=== PATIENT | female | born 2000 | race Caucasian/White ===

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

== ENCOUNTER 2018-01-16 12:18 | Emergency (ER) | payer BC, OTHER ==
[~2018-01-16] VITALS: Ht 162.6 cm; Wt 62.4 kg
[2018-01-16 12:26] VITALS: TEMP 37.2; Ht 162.6 cm; Wt 62.4 kg
[2018-01-16] MEDS ORDERED: LIDOCAINE 1% BUFFERED INJ 20 ML VIAL INFIL ONE (12:45)
--- NOTE | 2018-01-16 12:58 | DIAGNOSTIC IMAGING REPORT ---
R TOE(S) MIN 2 VIEWS HISTORY: 17 years-old Female RIGHT GREAT TOE, LACERATION acute pain and swelling with laceration of the right great toe COMPARISON: None available TECHNIQUE: 3 views of the right great toe FINDINGS: Mild soft tissue swelling of the distal first toe. No acute fracture, dislocation, significant degenerative changes or opaque foreign body. IMPRESSION: Soft tissue swelling without fracture or opaque foreign body. The above report was generated using voice recognition software. It may contain grammatical, syntax or spelling errors. Electronically signed by: Landen Juarez M.D. 01/16/2018 12:57 PM Dictated Date/Time: 01/16/2018 12:56 PM
--- NOTE | 2018-01-16 13:25 | EMERGENCY ROOM VISIT NOTE ---
ED Visit Note First contact with patient: 12:31 CHIEF COMPLAINT: Right great toe laceration 30 minutes ago HISTORY OF PRESENT ILLNESS: Patient is a 17-year-old female who presents emergency department for evaluation of a laceration to the dorsal aspect of the right great toe that she sustained roughly 30 minutes ago. She was doing some prep work in the kitchen when a non-serrated knife fell off the counter, landing on her right great toe, causing the laceration described below. She applied pressure, but bleeding continued. She applied paper towels and the plastic graft as a bandage and came to the emergency department. She has some minor discomfort with weightbearing. REVIEW OF SYSTEMS: Review of systems as per HPI. All other systems reviewed were negative. At least 6 systems reviewed. PMH: Electronic medical records are reviewed and summarized as above/below. See Problem List. Her tetanus is up-to-date. SOCIAL HISTORY: Patient is a college student from [employer] who lives locally in an apartment with roommates. Non-smoker. PHYSICAL EXAM: Vital Signs: Reviewed Nurse's notes. CONSTITUTIONAL: Patient is a well-appearing 17 acute distress. INTEGUMENTARY: There is a 2 cm long laceration on the dorsal aspect of the right great toe over the proximal phalanx , located more medially. The edges are gaping apart. There is no foreign material in the wound and it looks clean. There is no active bleeding. The patient can actively dorsiflex and plantarflex the great toe fully, and can hold against resistance with good strength. No deep structures such as tendons or nerves are seen in the base of the wound. EMERGENCY DEPARTMENT COURSE: X-rays of the right great toe were obtained and were negative for fracture. Using sterile technique, the toe was prepped with Betadine and wound was anesthetized with 1% plain buffered lidocaine. Area was draped sterilely. Wound was irrigated copiously using normal saline solution. A digital tourniquet was applied to achieve hemostasis and the wound was explored thoroughly, with no evidence of injury into the joint capsule. I could not appreciate any type of extensor tendon injury. Wound was reapproximated using 6, 5-0 nylon sutures. Bacitracin and a light dressing were applied. She was encouraged to wear a supportive shoes such as a sneaker. Medication reconciliation: I attest that I have personally reviewed the patient' s current medication list. Blood pressure screening : Patient was found to have normal blood pressure on screening and does not require follow-up. R TOE(S) MIN 2 VIEWS HISTORY: 17 years-old Female RIGHT GREAT TOE, LACERATION acute pain and swelling with laceration of the right great toe COMPARISON: None available TECHNIQUE: 3 views of the right great toe FINDINGS: Mild soft tissue swelling of the distal first toe. No acute fracture, dislocation, significant degenerative changes or opaque foreign body. IMPRESSION: Soft tissue swelling without fracture or opaque foreign body. Problem List Medical Problems: (1) Alcohol intoxication Status: Resolved (2) Alcohol intoxication Status: Resolved (3) Hypokalemia Status: Resolved (4) Hypokalemia Status: Resolved Current/Historical Medications Unable to Obtain Active Prescriptions or Reported Meds Allergies Coded Allergies: Amoxicillin (Verified Allergy, Mild, HIVES, 01/16/18) Clavulanic Acid (Verified Allergy, Mild, HIVES, 01/16/18) Vital Signs Date Time Temp Pulse Resp B/P (MAP) Pulse Ox O2 Delivery O2 Flow Rate FiO2 01/16/18 13:31 69 18 105/69 100 01/16/18 12:26 37.2 75 16 113/74 99 Room Air Departure Information Impression Primary Impression: Toe laceration Prescriptions Unable to Obtain Active Prescriptions or Reported Meds Referrals No Doctor, Assigned (PCP) Patient Instructions [facility] Additional Instructions Keep wound clean and dry. Do not allow any crusting or dried blood to accumulate on sutures. Clean gently with mild soap and water daily. Do not immerse in standing water. Use an antibiotic ointment for 3-4 days, then let wound dry. Wear a supportive, closed toed shoe such as a sneaker. Suture removal in 12-14 days. Return sooner for any signs of infection (increasing redness, swelling, drainage). Ice and elevate for swelling and pain. Ibuprofen 600 mg and Tylenol 1000 mg every 6 hrs for pain. Problem Qualifiers Primary Impression: Toe laceration Encounter type: initial encounter Toe: great toe Damage to nail status: without damage Foreign body presence: without foreign body Laterality: right Qualified Codes: S91.111A - Laceration without foreign body of right great toe without damage to nail, initial encounter
[2018-01-16 13:31] VITALS: BP 105/69; PULSE 69; O2SAT 100
== END 2018-01-16 13:32 | disposition home or self-care (01) ==
LOC: C.EDB 12:18 → C.EDD 13:32
DX: S91.111A Laceration without foreign body of right great toe without damage to nail, initial encounter (principal); W26.0XXA Contact with knife, initial encounter; Y92.010 Kitchen of single-family (private) house as the place of occurrence of the external cause